=== PATIENT | female | born 1990 | race Caucasian/White ===

== ENCOUNTER 2017-09-10 17:19 | Emergency (ER) | payer OTHER ==
[~2017-09-10] VITALS: Ht 162.6 cm; Wt 63.0 kg
[~2017-09-10 17:19] MED LIST: DOXYCYCLINE HY100 MG PO; FLONASE2 SPRAY NS; IBUPROFEN600 MG PO; MOTRIN IB200 MG PO; PERCOCET 7.5-31 EACH PO; PREDNISONE20 MG PO; PROVENTIL HFA6.7 GM INH; SINGULAIR10 MG PO; ZITHROMAX250 MG PO
== END 2017-09-10 17:33 | disposition home or self-care (01) ==
LOC: ED 17:19
DX: M79.641 Pain in right hand (principal)

== ENCOUNTER 2023-10-15 18:09 | Observation (INO) | payer OTHER ==
[~2023-10-15] VITALS: Ht 162.6 cm; Wt 61.8 kg
[~2023-10-15 18:09] MED LIST changes: +LAMOTRIGINE300 MG PO
--- OUTSIDE RECORDS SUMMARY | 2023-10-15 18:11 | XMS ---
PreManage Notification: JENNIFER BUTTS Security Incident Response Engineer Events No recent Security Events currently on file CRITERIA MET - [facility] CARE PROVIDERS -, [facility] Dentist: Atm Servicer [facility] PHONE: [phone] -[facility]ist: Atm Servicer [facility] PHONE: [phone] PAVAN NOEL Family Medicine: Geriatric Medicine Current PHONE: Unknown [place] has no Care Guidelines for this patient. E.D. VISIT COUNT (12 MO.) 1 MAUREEN Luna TOTAL 1 NOTE: Visits indicate total known visits. ED/UCC VISIT TRACKING (12 MO.) 10/15/2023 18:10 MAUREEN Whitten OR TYPE: Emergency COMPLAINT: - ABNORMAL LAB RESULTS INPATIENT VISIT TRACKING (12 MO.) No inpatient visits to display in this time frame [email or web address]
[2023-10-15] MEDS ORDERED: AMPHETAMINE SAL20 MG PO (18:22)
[2023-10-15] MEDS ORDERED: FLUOXETINE HCL40 MG PO (18:23)
[2023-10-15] MEDS ORDERED: LEVOTHYROXINE88 MCG PO (18:23)
[2023-10-15] MEDS ORDERED: BUPRENORPHIN-N1 EACH SL (18:23)
[2023-10-15 19:28] LABS: BASOPHILS 0.3 % (0-2); EOSINOPHILS 1.3 % (0-6); HEMATOCRIT 32.9 % (35.0-50.0); HEMOGLOBIN 11.2 g/dL (12.0-18.0); LYMPHOCYTES 38.7 % (24-44); MCH 31.4 (27-36); MCHC 34.1 g/dl (30-36); MONOCYTES 13.7 % (0-12); RBC 3.58 M/ul (4.3-5.7); RDW 13.4 (10.5-15.0)
[2023-10-15 19:30] LABS: INR 0.97 (0.80-1.30); PROTIME 12.5 Sec (11.2-14.2)
[2023-10-15 19:35] LABS: ALBUMIN 3.3 g/dL (3.4-5.0); ALBUMIN/GLOBULIN RATIO 1.1 (1.1-2.4); ANION GAP 8.7 (7-21); BILIRUBIN, TOTAL 0.2 ng/dL (0.2-1.0); BUN/CREATININE RATIO 11.11 (6.0-28.6); CALCIUM 8.2 mg/dL (8.5-10.1); CREATININE, SERUM 0.81 mg/dL (0.55-1.02); POTASSIUM 3.7 mmol/L (3.5-5.1); PROTEIN, TOTAL 6.3 g/dL (6.4-8.2)
[2023-10-15 19:48] LABS: PLATELET COUNT 5 K/uL (140-440)
[2023-10-15 19:58] LABS: ABO A; ANTIBODY SCREEN NEGATIVE; RH POSITIVE
[2023-10-15] MEDS ORDERED: DEXAMETHASONE SOD PHOS 10 MG/ML VIAL IV ONE (21:00)
[2023-10-15] MEDS ORDERED: SODIUM CHLORIDE 0.9% 1,000 ML IV SCH (22:00)
--- NOTE | 2023-10-15 22:09 | NUR ---
pt ARRIVED TO [facility] ROOM #116, AMBULATED SELF FROM WC TO BED. pt NOW RESTING IN BED, VS COLLECTED AND FRESH ICE WATER PROVIDED. pt A/OX4, PLEASANT. IV SITE WNL, FLUIDS INFUSING DIRECTED. POC DISCUSSED AND pt ORIENTED TO ROOM. CALL LIGHT IN REACH, pt VERBALIZES UNDERSTANDING TO USE CALL LIGHT BEFORE GETTING OOB D/T REPORTED DIZZINESS IN THE ED.
[2023-10-15 22:13] VITALS: BP 99/59
--- NOTE | 2023-10-15 22:15 | NUR ---
REPORT RECEIVED FROM ED RN. PATIENT RESTING IN BED. WHIP SAWYER AT BEDSIDE WITH PATIENT.
--- NOTE | 2023-10-15 22:30 | NUR ---
DR FU AT RN STATION DISCUSSING POC. PER DR FU, ER MD ALREADY ORDERED 1 PACK PLATELETS. ONCE PLATELETS ARE AVAILABLE, INFUSE PER POLICY AND WAIT ONE HR BEFORE RECHECKING LABS. PER DR FU, IF PLATELETS ARE COMPLETED BEFORE TIME OF ORDERED AM LABS-CAN COLLECT ORDERED AM LABS EARLY. PER DR FU, "THE MAGIC NUMBER FOR HER PLATELETS IS 10. IF IT COMES BACK IN THE MORNING LESS THAN 10 THEN SHE'LL NEED MORE PLATELETS". PER DR FU, OKAY TO CALL WITH POST INFUSION PLATELET VALUE. PRIMARY RN WILLOW UPDATED AND AWARE.
--- NOTE | 2023-10-15 22:48 | NUR ---
PATIENT RESTING IN BED. LUNGS CTA. BOWEL TONES ACTIVE X 4 QUADRANTS. PATIENT REPORTS LAST BM WAS TODAY 10/15/23. DENIES ANY PAIN AT THIS TIME. IVF INFUSING WITH NO ISSUES OR CONCERNS. IV SITE PATENT. PETECHIAE RASH NOTED TO BILATERAL LEGS, ARMS AND TORSO. CALL LIGHT WITHIN REACH. NO FURTHER NEEDS AT THIS TIME.
[2023-10-15 23:20] LABS: ABO A; RH POSITIVE
--- NOTE | 2023-10-16 00:02 | NUR ---
PATIENT CALLED TO USE THE RESTROOM. PATIENT VOIDED 275ML DARK ORANGE/BROWN URINE. PATIENT IS INDEPENDENT IN ROOM PER PRIMARY RN. PATIENT CAN MANAGE HER IV POLE TO UNPLUGGED AND PLUG BACK ON. PATIENT DENIES FURTHER NEEDS OR CARE AT THIS TIME.
--- NOTE | 2023-10-16 01:52 | NUR ---
SECOND RN VERIFIED PLATELETS. PLATELETS STARTED.
--- NOTE | 2023-10-16 02:07 | NUR ---
PATIENT WITH NO NOTED TRANSFUSSION REACTIONS AT THIS TIME. VSS.
--- NOTE | 2023-10-16 03:37 | NUR ---
TRANSFUSSION COMPLETED. VSS. NO NOTED TRANSFUSSION REACTION AT THIS TIME. PATIENT RESTING IN BED. RESPIRATIONS EVEN AND UNLABORED. DENIES ANY NEEDS AT THIS TIME. CALL LIGHT WITHIN REACH.
--- NOTE | 2023-10-16 04:43 | NUR ---
lab in room preparing to draw am labs. primary rn aware.
--- NOTE | 2023-10-16 04:48 | NUR ---
PATIENT RESTING IN BED. LAB WITH PATIENT AT THIS TIME.
[2023-10-16 04:54] LABS: BASOPHILS 0.2 % (0-2); EOSINOPHILS 0.1 % (0-6); HEMATOCRIT 34.1 % (35.0-50.0); HEMOGLOBIN 11.7 g/dL (12.0-18.0); LYMPHOCYTES 13.6 % (24-44); MCH 31.7 (27-36); MCHC 34.2 g/dl (30-36); MCV 92.5 fl (81-99); MONOCYTES 3.1 % (0-12); RBC 3.68 M/ul (4.3-5.7); RDW 13.5 (10.5-15.0)
[2023-10-16 05:05] LABS: PLATELET COUNT 16 K/uL (140-440)
[2023-10-16 05:07] LABS: ALBUMIN 3.3 g/dL (3.4-5.0); ANION GAP 10.9 (7-21); BILIRUBIN, TOTAL 0.2 ng/dL (0.2-1.0); BUN/CREATININE RATIO 16.41 (6.0-28.6); CALCIUM 8.2 mg/dL (8.5-10.1); CREATININE, SERUM 0.67 mg/dL (0.55-1.02); MAGNESIUM 1.8 mg/dL (1.8-2.4); POTASSIUM 3.9 mmol/L (3.5-5.1); PROTEIN, TOTAL 6.6 g/dL (6.4-8.2)
[2023-10-16 05:33] VITALS: BP 93/48
[2023-10-16 05:36] VITALS: BP 93/48
--- NOTE | 2023-10-16 05:38 | NUR ---
PATIENT RESTING IN BED. DENIES ANY PAIN OR DISCOMFORT AT THIS TIME. DENIES ANY DIZZINESS. PETECHIE RASH REMAIN TO BILATERAL LEGS, ARMS AND ABDOMEN. VSS. IVF INFUSING WITH NO ISSUES OR CONCERNS. DENIES ANY NEEDS AT THIS TIME. CALL LIGHT WITHIN REACH.
[2023-10-16] MEDS ORDERED: DEXAMETHAS10 MG/1 M1 PO (06:27)
--- NOTE | 2023-10-16 07:29 | NUR ---
RECEIVED REPORT FROM VENITA FLORES. PT RESTING IN BED WITH EYES CLOSED, BREATHING EVEN AND UNLABORED. CALL LIGHT WITHIN REACH.
--- NOTE | 2023-10-16 08:40 | NUR ---
PT LYING IN BED AWAKE, DENIES PAIN OR SOB. IV DC'D WNL. TELE REMAINS IN PLACE. PT TAKES PO MEDICATION W/O DIFFICULTY. DC PACKET AND EDUCATION GIVEN TO PT, PT STATES NO FURTHER NEEDS OR QUESTIONS AT THIS TIME. PERSONAL BELONGINGS WITH PT, PT DRESSED IN OWN CLOTHES. CALL LIGHT WITHIN REACH.
[2023-10-16] MEDS ORDERED: dexAMETHasone 4 MG TAB PO SCH (09:00)
[2023-10-16] MEDS ORDERED: DEXAMETHASONE SOD PHOS 10 MG/ML VIAL PO SCH (09:00)
[2023-10-16 09:32] VITALS: BP 99/58
[2023-10-16] MEDS ORDERED: PHARMACY RENAL DOSE ADJUSTMENT 1 DOSE MISC PO SCH (12:00)
[2023-10-18 05:23] LABS: HAPTOGLOBIN 121 mg/dL (30-200)
== END 2023-10-16 09:35 | disposition home or self-care (01) ==
LOC: ED 18:09 → MS 18:11 → ED 21:37 → MS 21:37
PROVIDERS: Family Medicine; ADMIT Internal Medicine; ATTEND Internal Medicine
DX: D69.6 Thrombocytopenia, unspecified (principal); R21 Rash and other nonspecific skin eruption; E03.9 Hypothyroidism, unspecified; F17.200 Nicotine dependence, unspecified, uncomplicated; Z88.0 Allergy status to penicillin
CPT/HCPCS: 36415; 36430; 80053; 83010; 83735; 85025; 85045; 85060; 85610; 86850; 86900; 86901; 86922; 96374; 99284-25; G0378; J1100; J7030; J8540; P9035